=== PATIENT | female | born 1990 | race Caucasian/White ===

== ENCOUNTER 2016-12-13 02:04 | Emergency (ER) | payer MEDICAID ==
[~2016-12-13] VITALS: Ht 157.5 cm; Wt 66.1 kg
[~2016-12-13 02:04] MED LIST: PREN1TAB17 PO
[2016-12-13 02:07] VITALS: Ht 157.5 cm; Wt 66.1 kg
[2016-12-13] MEDS ORDERED: AMO500 PO (03:31)
[2016-12-13] MEDS ORDERED: FLUT9.9S NASAL (03:31)
[2016-12-13] MEDS ORDERED: CETI10CA PO (03:31)
--- NOTE | 2016-12-13 03:48 | ERD ---
ER Documentation Chief Complaint Date/Time DATE: 12/13/16 TIME: 03:45 Chief Complaint Pt c/o r side facial pain that started yesterday HPI 26-year-old female presents here in emergency department for complaints of right facial pain, purulent discharge from the right naris, and nasal congestion of the right naris started yesterday. Patient is complaining of right facial pain, throbbing pain, 6/10 scale, accompanying the other symptoms. Patient has been having on and off fever. Patient denies any cough shortness breath or wheezing. Patient denies any sore throat. Patient did not take any medications to help with symptoms. ROS All systems reviewed and are negative except as per history of present illness. Medications Home Meds Active Scripts Cetirizine Hcl* (Zyrtec*) 10 Mg Capsule, 10 MG PO DAILY, #30 TAB.CHEW Prov:MARY GRACE VARGAS NP 12/13/16 Fluticasone Propionate (Flonase Allergy Relief) 9.9 Ml [place].susp, 1 SPRAY NASAL BID, #1 BOTTLE TO EACH NOSTRIL Prov:MARY GRACE VARGAS NP 12/13/16 Amoxicillin* (Amoxicillin*) 500 Mg Cap, 500 MG PO TID for 10 Days, CAP Prov:MARY GRACE VARGAS NP 12/13/16 Reported Medications Vit-Iron Fumarate-FA ( Tablet) 1 Each Tablet, 1 EACH PO DAILY 03/04/14 Allergies Allergies: Coded Allergies: No Known Allergy (Unverified , 03/04/14) PMhx/Soc Medical and Surgical Hx: pt denies Medical Hx, pt denies Surgical Hx History of Surgery: No Anesthesia Reaction: No Hx Neurological Disorder: No Hx Respiratory Disorders: No Hx Cardiac Disorders: No Hx Psychiatric Problems: No Hx Miscellaneous Medical Probl: No Hx Alcohol Use: No Hx Substance Use: No Hx Tobacco Use: No FmHx Family History: No coronary disease, No diabetes, No other Physical Exam Vitals Vital Signs Date Time Temp Pulse Resp B/P Pulse Ox O2 Delivery O2 Flow Rate FiO2 12/13/16 02:07 98.3 95 18 134/75 97 Physical Exam GENERAL: The patient is well developed and appropriate for usual state of health, in no apparent distress. HEENT: Atraumatic. Ears: Normal tympanic membrane, no erythema or bulging. No ear canal swelling. No ear discharge. Nose: Right nasal turbinates to be erythematous with purulent discharge, tenderness on palpation on the right maxillary sinus. Left nasal turbinates is normal. Normal nasal discharge in the left naris. Nontender left maxillary sinus. Throat: oropharynx clear. No tonsillar swelling or tonsillar exudates. No lymphadenopathy. CHEST: Clear to auscultation bilaterally. There are no rales, wheezes or rhonchi. HEART: Regular rate and rhythm. No murmurs, clicks, rubs or gallops. No S3 or S4. ABDOMEN: Soft, nontender and nondistended. Good bowel sounds. No rebound or guarding. No gross peritonitis. No gross organomegaly or masses. No Khoury sign or McBurney point tenderness. BACK: No midline or flank tenderness. EXTREMITIES: Equal pulses bilaterally. There is no peripheral clubbing, cyanosis or edema. No focal swelling or erythema. Full range of motion. Grossly neurovascularly intact. NEURO: Alert and oriented. Cranial nerves 2-12 intact. Motor strength in all 4 extremities with 5/5 strength. Sensation grossly intact. Normal speech and gait. SKIN: There is no apparent rash or petechia. The skin is warm and dry. HEMATOLOGIC AND LYMPHATIC: There is no evidence of excessive bruising or lymphedema. No gross cervical, axillary, or inguinal lymphadenopathy. Procedures/MDM Medical decision making: Patient's symptoms most likely consistent with acute bacterial rhinosinusitis. Low suspicion for allergic rhinitis. No suspicion for sepsis at this time. Patient appears well and is hemodynamically stable. Patient did not have any trauma in the facial area. No symptoms of any abscesses at this time. Patient was given amoxicillin, ibuprofen, Flonase, Zyrtec, is advised to follow-up primary care doctor in 2-3 days for reevaluation of symptoms. Patient was advised to return to emergency department for any worsening symptoms. Departure Diagnosis: Primary Impression: Acute bacterial rhinosinusitis Condition: Stable Patient Instructions: Sinusitis, MARY GRACE Samuels NP Dec 13, 2016 03:48
[2016-12-13 03:50] VITALS: BP 119/70; PULSE 79; RESP 17; TEMP 98.5
== END 2016-12-13 03:50 | disposition home or self-care (01) ==
LOC: FTE 02:04
DX: J01.80 Other acute sinusitis (principal)
CPT/HCPCS: 99283

== ENCOUNTER 2017-09-01 22:37 | Emergency (ER) | payer MEDICAID ==
[~2017-09-01] VITALS: Ht 165.1 cm; Wt 69.0 kg
[~2017-09-01 22:37] MED LIST changes: +AMOX500C2 PO; +CETI10CA PO; +FLUT9.9S NASAL
[2017-09-01 22:39] VITALS: Ht 165.1 cm; Wt 69.0 kg
--- NOTE | 2017-09-02 00:12 | ERD ---
ER Documentation Chief Complaint Chief Complaint c/o pelvic pain x 2 days. No VB. HPI 26-year-old female presenting with a chief complaints of lower abdominal pain. Patient has had symptoms in the past have spontaneously resolved. Patient also reports increased frequency. Describes white odorous discharge. Denies hematuria, dysuria, nausea, vomiting, diarrhea, constipation, fever or chills. Patient has no other complaints and describes no other associated manifestations. Nursing notes have been reviewed and are consistent with history given. ROS All systems reviewed and are negative except as per history of present illness. Medications Home Meds Active Scripts Metronidazole* (Flagyl*) 500 Mg Tablet, 500 MG PO BID for 7 Days, TAB Prov:TATO QUINTANILLA PA-C 09/02/17 Cetirizine Hcl* (Zyrtec*) 10 Mg Capsule, 10 MG PO DAILY, #30 TAB.CHEW Prov:MARY GRACE VARGAS NP 12/13/16 Fluticasone Propionate (Flonase Allergy Relief) 9.9 Ml [place].susp, 1 SPRAY NASAL BID, #1 BOTTLE TO EACH NOSTRIL Prov:MARY GRACE VARGAS NP 12/13/16 Amoxicillin* (Amoxicillin*) 500 Mg Cap, 500 MG PO TID for 10 Days, CAP Prov:MARY GRACE VARGAS NP 12/13/16 Reported Medications Vit-Iron Fumarate-FA ( Tablet) 1 Each Tablet, 1 EACH PO DAILY 03/04/14 Allergies Allergies: Coded Allergies: No Known Allergy (Unverified , 03/04/14) PMhx/Soc Medical and Surgical Hx: pt denies Medical Hx History of Surgery: Yes (Tubal Ligation) Anesthesia Reaction: No Hx Neurological Disorder: No Hx Respiratory Disorders: No Hx Cardiac Disorders: No Hx Psychiatric Problems: No Hx Miscellaneous Medical Probl: No Hx Alcohol Use: No Hx Substance Use: No Hx Tobacco Use: No Smoking Status: Never smoker Physical Exam Vitals Vital Signs Date Time Temp Pulse Resp B/P Pulse Ox O2 Delivery O2 Flow Rate FiO2 09/01/17 22:39 98.1 68 18 149/79 98 Physical Exam Const: Well-appearing 26-year-old female no acute distress Head: Atraumatic Eyes: Normal Conjunctiva ENT: Normal External Ears, Nose and Mouth. Neck: Full range of motion..~ No meningismus. Resp: Clear to auscultation bilaterally Cardio: Regular rate and rhythm, no murmurs Abd: Moderate suprapubic tenderness. Soft, non tender, non distended. Normal bowel sounds Skin: No petechiae or rashes Back: No midline or flank tenderness Ext: No cyanosis, or edema Neur: Awake and alert Psych: Normal Mood and Affect Pelvic exam: White nonodorous discharge. No lesions. Vaginal daley within normal limits. No cervical motion tenderness. No adnexal masses palpated. Results 24 hrs Laboratory Tests Test 09/02/17 00:25 Bedside Urine pH (LAB) 7.0 Bedside Urine Protein (LAB) Negative Bedside Urine Glucose (UA) Negative Bedside Urine Ketones (LAB) Negative Bedside Urine Blood Negative Bedside Urine Nitrite (LAB) Negative Bedside Urine Leukocyte Esterase (L Negative Procedures/MDM Otherwise healthy 26-year-old female presenting with a chief complaint of lower abdominal pain. Similar symptoms in the past have spontaneously resolved. Describes white odorless discharge. Mild to moderate suprapubic tenderness. Signs and symptoms most consistent with cystitis versus vaginitis. Urine was obtained urine negative. Urine dip revealed the following: Unremarkable. Ultrasound was ordered to rule out torsion. Ultrasound was read by the radiologist and given the following impression: Thickened endometrium. Recommended outpatient follow-up ultrasound. Otherwise unremarkable. Pelvic exam showed white vaginal discharge without distinct odor most consistent with bacterial vaginitis. At this time the most likely diagnosis is bacterial vaginitis. We will treat with metronidazole. I have no suspicion for acute abdomen, PID, ovarian torsion , related pathologies, or other acute intrapelvic disorder. I have spoke with the patient regarding their condition and future management. They have verbally responded that they understand their status and treatment plan. The patients vitals are stable, and their current condition is appropriate for discharge. The patient will be given discharge instructions with return precautions. Discharge medications: Metronidazole Departure Diagnosis: Primary Impression: Acute pain in female pelvis Condition: Stable Additional Instructions: Follow up with your PCP within the next 1-3 days for a more thorough evaluation and a possible referral to a specialist. Return the the emergency department immediately if symptoms worsen or change. If you have any questions regarding medications, ask your pharmacist or us before you leave. If any adverse reactions occur while taking your medications, discontinue the treatment and return to the emergency department immediately. Take your medications as directed, and complete the entire course of treatment. TATO QUINTANILLA PA-C Sep 02, 2017 00:12
[2017-09-02 00:26] LABS: URINE BLOOD (Dip) POC Negative (NEGATIVE)
--- NOTE | 2017-09-02 01:59 | RADRPT ---
PROCEDURE: US Pelvis. CLINICAL INDICATION: Pain. Last menstrual period 08/04/2017 TECHNIQUE: Multiple sonographic images of the pelvis were obtained utilizing a transabdominal alicia hnique. The images were reviewed on a PACS workstation. COMPARISON: None. FINDINGS: The uterus measures 7.7 x 4.2 x 6 cm. The thickness of the endometrium equals 1.7 cm. The right ova ry measures 3.8 x 1.7 x 2.5 cm and is unremarkable. The left ovary measures 3.8 x 2 x 2 cm and is un remarkable. Color flow and spectral analysis demonstrates normal arterial flow in both ovaries and normal venous flow in the left ovary. No adnexal mass or free intrapelvic fluid is seen. IMPRESSION: Thickened endometrium. Follow-up pelvic ultrasound at the end of the first menstrual week is recomme nded. Please see above. RPTAT: HJES .Abhijit Orellana MD, MD Date Time Electronically viewed and signed by .Abhijit Orellana MD, on 09/02/2017 01:59 .S/
[2017-09-02] MEDS ORDERED: METR500T PO (02:35)
== END 2017-09-02 02:47 | disposition home or self-care (01) ==
LOC: FTE 22:37
DX: R10.2 Pelvic and perineal pain (principal)
CPT/HCPCS: 76856; 81003; Z7502